=== PATIENT | male | born 1950 | race Caucasian/White ===

== ENCOUNTER → 2018-10-13 08:51 | Outpatient (CLI) | payer MEDICARE, OTHER ==
[~2018-10-13] VITALS: Ht 185.4 cm; Wt 131.5 kg
[2018-10-13 10:51] VITALS: Ht 185.4 cm; Wt 131.5 kg
== END | disposition home or self-care (01) ==
LOC: D.FANS 08:51
DX: E66.09 Other obesity due to excess calories (principal)